=== PATIENT | female | born 1980 | race African-American/Black ===

== ENCOUNTER → 2021-02-11 | Outpatient (CLI) | payer OTHER ==
[~2021-02-11] MED LIST: ACYCLOVIR400 MG PO; BACTROBAN CREAM15 GM TOP; BUSPAR 10MG10 MG PO; CARAFATE1 GM PO; FAMOTIDINE20 MG PO; FLORASTOR250 MG PO; IBU800 MG PO; IBUPROFEN600 MG PO; KEFLEX CAP 500500 MG PO; LABETALOL HCL100 MG PO; LAMISIL AT 15 G15 GM TOP; MOBIC15 MG PO; MUCINEX DM ER1 EACH PO; NEURONTIN600 MG PO; ONDANSETRON HCL4 MG PO; ROPINIROLE HCL2 MG PO; TESSALON PERLE100 MG PO; VENLAFAXINE HCL75 M2 PO; VRAYLAR PO; VRAYLAR6 MG PO; ZITHROMAX250 MG PO; ZOFRAN4 MG PO
== END ==
LOC: LAB 09:27
DX: M54.5 Low back pain (principal); M25.562 Pain in left knee; R53.83 Other fatigue; R63.1 Polydipsia; R63.5 Abnormal weight gain; M47.816 Spondylosis without myelopathy or radiculopathy, lumbar region
CPT/HCPCS: 36415; 72100; 72110; 73562; 73564

== ENCOUNTER 2021-02-16 16:26 | Emergency (ER) | payer OTHER ==
[~2021-02-16 16:26] MED LIST changes: -ACYCLOVIR400 MG PO; -BUSPAR 10MG10 MG PO; -CARAFATE1 GM PO; -FAMOTIDINE20 MG PO; -FLORASTOR250 MG PO; -IBU800 MG PO; -LABETALOL HCL100 MG PO; -MOBIC15 MG PO; -NEURONTIN600 MG PO; -ONDANSETRON HCL4 MG PO; -ROPINIROLE HCL2 MG PO; -VENLAFAXINE HCL75 M2 PO; -VRAYLAR6 MG PO; -ZOFRAN4 MG PO
[2021-02-16 17:35] LABS: HEMOGLOBIN 13.6 gm/dl (12.3-15.3); RED BLOOD COUNT 4.75 M/UL (4.00-5.10); WHITE BLOOD COUNT 3.9 K/UL (4.5-11.0)
[2021-02-16 17:58] LABS: BUN/CREATININE RATIO 14 (0-10)
[2021-02-16] MEDS ORDERED: FLORASTOR250 MG PO (20:38)
[2021-02-16] MEDS ORDERED: ZOFRAN4 MG PO (20:38)
== END 2021-02-16 20:46 | disposition home or self-care (01) ==
LOC: ER1 16:26
PROVIDERS: Physician Assistant
DX: R10.13 Epigastric pain (principal); R11.2 Nausea with vomiting, unspecified; R19.7 Diarrhea, unspecified; K21.9 Gastro-esophageal reflux disease without esophagitis; I10 Essential (primary) hypertension; F17.290 Nicotine dependence, other tobacco product, uncomplicated
CPT/HCPCS: 80053; 81001; 82150; 83690; 84703; 85025; 99284

== ENCOUNTER 2021-02-22 11:43 | Emergency (ER) | payer OTHER ==
[~2021-02-22 11:43] MED LIST changes: +FLORASTOR250 MG PO; +ZOFRAN4 MG PO
== END 2021-02-22 13:02 | disposition home or self-care (01) ==
LOC: ER1 11:43
DX: K43.9 Ventral hernia without obstruction or gangrene (principal); F17.290 Nicotine dependence, other tobacco product, uncomplicated
CPT/HCPCS: 99283

== ENCOUNTER → 2021-03-11 | Outpatient (CLI) | payer OTHER ==
[~2021-03-11] MED LIST changes: +ACYCLOVIR400 MG PO; +BUSPAR 10MG10 MG PO; +CARAFATE1 GM PO; +FAMOTIDINE20 MG PO; +IBU800 MG PO; +LABETALOL HCL100 MG PO; +MOBIC15 MG PO; +NEURONTIN600 MG PO; +ONDANSETRON HCL4 MG PO; +ROPINIROLE HCL2 MG PO; +VENLAFAXINE HCL75 M2 PO; +VRAYLAR6 MG PO
== END ==
LOC: OPSV2 12:00
DX: Z01.818 Encounter for other preprocedural examination (principal)
CPT/HCPCS: 84703; 93005

== ENCOUNTER 2021-03-12 06:59 | Inpatient (IN) | payer OTHER ==
[~2021-03-12] VITALS: Ht 172.7 cm; Wt 140.6 kg
[~2021-03-12 06:59] MED LIST changes: -ACYCLOVIR400 MG PO; -BUSPAR 10MG10 MG PO; -CARAFATE1 GM PO; -FAMOTIDINE20 MG PO; -IBU800 MG PO; -LABETALOL HCL100 MG PO; -MOBIC15 MG PO; -NEURONTIN600 MG PO; -ONDANSETRON HCL4 MG PO; -ROPINIROLE HCL2 MG PO; -VENLAFAXINE HCL75 M2 PO; -VRAYLAR6 MG PO
[2021-03-12 11:49] LABS: RED BLOOD COUNT 4.75 M/UL (4.00-5.10); WHITE BLOOD COUNT 4.4 K/UL (4.5-11.0)
[2021-03-12 12:05] LABS: BUN/CREATININE RATIO 16 (0-10)
[2021-03-12] MEDS ORDERED: NEURONTIN600 MG PO (13:45)
[2021-03-12] MEDS ORDERED: VRAYLAR6 MG PO (13:45)
[2021-03-12] MEDS ORDERED: ACYCLOVIR400 MG PO (13:45)
[2021-03-12] MEDS ORDERED: FAMOTIDINE20 MG PO (13:46)
[2021-03-12] MEDS ORDERED: ONDANSETRON HCL4 MG PO (13:46)
[2021-03-12] MEDS ORDERED: MOBIC15 MG PO (13:46)
[2021-03-12] MEDS ORDERED: IBU800 MG PO (13:47)
[2021-03-12] MEDS ORDERED: VENLAFAXINE HCL75 M2 PO (13:47)
[2021-03-12] MEDS ORDERED: LABETALOL HCL100 MG PO (13:48)
[2021-03-12] MEDS ORDERED: BUSPAR 10MG10 MG PO (13:48)
[2021-03-12] MEDS ORDERED: CARAFATE1 GM PO (13:48)
[2021-03-12] MEDS ORDERED: ROPINIROLE HCL2 MG PO (13:49)
[2021-03-13 05:08] LABS: HEMOGLOBIN 13.1 gm/dl (12.3-15.3); RED BLOOD COUNT 4.57 M/UL (4.00-5.10); WHITE BLOOD COUNT 4.5 K/UL (4.5-11.0)
[2021-03-13 05:28] LABS: BUN/CREATININE RATIO 14 (0-10)
== END 2021-03-13 16:15 | disposition home or self-care (01) | DRG 296 ==
LOC: OR 06:59 → CCU 11:00
PROVIDERS: Internal Medicine; Physician Assistant; ADMIT Surgery
PROC: B24BZZZ Ultrasonography of Heart with Aorta (ICD-10-PCS; 2021-03-12)
PROC: 3E033XZ Introduction of Vasopressor into Peripheral Vein, Percutaneous Approach (ICD-10-PCS; 2021-03-12)
PROC: 5A12012 Performance of Cardiac Output, Single, Manual (ICD-10-PCS; principal; 2021-03-12 10:00)
DX: I46.9 Cardiac arrest, cause unspecified (principal); J96.01 Acute respiratory failure with hypoxia; Z68.42 Body mass index [BMI] 45.0-49.9, adult; K43.9 Ventral hernia without obstruction or gangrene; I07.1 Rheumatic tricuspid insufficiency; I27.20 Pulmonary hypertension, unspecified; M19.90 Unspecified osteoarthritis, unspecified site; F31.9 Bipolar disorder, unspecified; B19.20 Unspecified viral hepatitis C without hepatic coma; F17.210 Nicotine dependence, cigarettes, uncomplicated; E66.01 Morbid (severe) obesity due to excess calories; F19.10 Other psychoactive substance abuse, uncomplicated; Z20.822 Contact with and (suspected) exposure to COVID-19; Z53.09 Procedure and treatment not carried out because of other contraindication; F41.9 Anxiety disorder, unspecified; I10 Essential (primary) hypertension; Z98.890 Other specified postprocedural states; Z82.49 Family history of ischemic heart disease and other diseases of the circulatory system; Z83.3 Family history of diabetes mellitus
CPT/HCPCS: ECHO; 36415; 36600; 71045; 78452; 80053; 80307; 82550; 82553; 82803; 83735; 84439; 84443; 84484; 84703; 85025; 93005; 93017; 93306; 94002; A9502; C1713; C1751; C1781; J0171; J0461; J0690; J1650; J2001; J2250; J2704; J2785; J3010; J3475; J7030; J7120; U0003

== ENCOUNTER 2021-04-18 23:12 | Emergency (ER) | payer OTHER ==
[~2021-04-18 23:12] MED LIST changes: +ACYCLOVIR400 MG PO; +BUSPAR 10MG10 MG PO; +CARAFATE1 GM PO; +FAMOTIDINE20 MG PO; +IBU800 MG PO; +LABETALOL HCL100 MG PO; +MOBIC15 MG PO; +NEURONTIN600 MG PO; +ONDANSETRON HCL4 MG PO; +ROPINIROLE HCL2 MG PO; +VENLAFAXINE HCL75 M2 PO; +VRAYLAR6 MG PO
== END 2021-04-19 03:30 | disposition left against medical advice (07) ==
LOC: ER1 23:12
DX: R10.10 Upper abdominal pain, unspecified (principal); Z88.6 Allergy status to analgesic agent; F17.210 Nicotine dependence, cigarettes, uncomplicated
CPT/HCPCS: 71045; 99284

== ENCOUNTER 2021-04-28 18:21 | Emergency (ER) | payer OTHER | END 2021-04-28 19:36 | disposition left against medical advice (07) | LOC: ER1 18:21 | DX: Z53.21 Procedure and treatment not carried out due to patient leaving prior to being seen by health care provider (principal) ==